=== PATIENT | male | born 1940 | race Caucasian/White ===

== ENCOUNTER → 2018-05-19 08:00 | Outpatient (CLI) | payer MEDICARE, SELFPAY | PROVIDERS: PCP Internal Medicine; Visit Provider Nurse Practitioner Gerontology | DX: B37.49 Other urogenital candidiasis (principal) | CPT/HCPCS: 99213 ==

== ENCOUNTER 2018-07-19 12:45 | Outpatient (REF) | payer MEDICARE, SELFPAY ==
[2018-07-19 21:29] LABS: Anion Gap 8.4 mmol/L (3-11); BUN 16 mg/dL (7-18); CO2 28.6 mmol/L (21.0-32.0); Calcium 8.7 mg/dL (8.5-10.1); Chloride 101 mmol/L (98-107); Glucose 125 mg/dL (70-100); Magnesium 1.8 mg/dL (1.8-2.4); Potassium 3.6 mmol/L (3.5-5.1); Sodium 138 mmol/L (136-145); TSH 1.71 uIU/mL (0.358-3.74)
[2018-07-19 21:37] LABS: HCT 45.5 % (40.0-50.0); HGB 15.8 g/dL (13.5-17.5); Mean Corp. HGB Concentration 34.7 g/dL (32.0-36.0); Mean Corpuscular Hemoglobin 35.7 pg (27.0-33.0); Mean Corpuscular Volume 102.7 fL (80-95); Mean Platelet Volume 10.8 fL (8.0-11.0); Platelet Count 117 x1000/uL (130-400); RBC 4.43 m/cumm (4.50-6.00); RBC Distribution Width 12.6 % (11.8-14.1); White Blood Cell Count 4.44 k/cumm (4.4-10.8)
== END 2018-07-19 13:05 ==
LOC: NCHCN 12:45
PROVIDERS: PCP Internal Medicine; Visit Provider Internal Medicine
DX: R00.2 Palpitations (principal)
CPT/HCPCS: 80048; 85027; 83735; 84443

== ENCOUNTER 2018-07-25 13:11 | Outpatient (CLI) | payer MEDICARE, SELFPAY ==
--- NOTE | 2018-08-16 12:25 | ZIOP_ITS ---
DATE OF DICTATION: August 16, 2018 [facility] REPORT STUDY INDICATIONS: Palpitations. REQUESTING PROVIDER: Paresh Mejia M.D. FINDINGS: The patient was monitored for twelve days and twenty-one hours. The predominant underlying rhythm was sinus rhythm. Average heart rate in sinus rhythm 53 bpm, range 77-128 bpm. There was rare ectopy. There were eight atrial runs, average heart rate 112 bpm, range 79-141 bpm. The longest episode lasted 15 beats with an average heart rate of 99 bpm. There were no pauses greater than 3 seconds. There was no high-degree heart block. There were eight patient events. Six events correlated with PAC's. Two events did not correlate wit h arrhythmias. FINAL INTERPRETATION: Minor atrial arrhythmias, at times symptomatic.
== END 2018-07-25 13:31 ==
PROVIDERS: PCP Internal Medicine; Visit Provider Internal Medicine
DX: R00.2 Palpitations (principal); I47.1 Supraventricular tachycardia
CPT/HCPCS: 93225

== ENCOUNTER 2018-08-16 11:57 | Outpatient (CLI) | payer MEDICARE, SELFPAY | END 2018-08-16 12:17 | PROVIDERS: PCP Internal Medicine; Referring Provider Internal Medicine; Visit Provider Student in an Organized Health Care Education/Training Program | DX: R00.2 Palpitations (principal); I47.1 Supraventricular tachycardia | CPT/HCPCS: 0298T ==

== ENCOUNTER 2018-12-12 16:52 | Outpatient (CLI) | payer MEDICARE, SELFPAY ==
--- NOTE | 2018-12-12 16:16 | DI.RAD_ITS ---
SYMPTOM/DIAGNOSIS: CHRONIC PAIN WITH ABDUCTION AND EXTERNAL MOTION. LEFT SHOULDER: The bony structures are normally mineralized. There are mild degenerative changes involving the glenohumeral joint and moderate DJD involving the AC joint. There is no evidence of a fracture or dislocation.
== END 2018-12-12 17:12 ==
PROVIDERS: PCP Internal Medicine; Visit Provider Internal Medicine
DX: M25.512 Pain in left shoulder (principal); M19.012 Primary osteoarthritis, left shoulder
CPT/HCPCS: 73030